=== PATIENT | female | born 1990 | race Caucasian/White ===

== ENCOUNTER 2017-06-01 18:57 | Emergency (ER) | payer MEDICAID, OTHER ==
[2017-06-01 18:57] VITALS: BMI 26.7
[2017-06-01 19:15] VITALS: BP 101/66; PULSE 84; RESP 20; TEMP 98.1; O2SAT 100
[2017-06-01 19:58] LABS: RBC URINE 4 /hpf (0-3); URINE BACTERIA RARE (<OCC); URINE BILIRUBIN NEGATIVE (NEGATIVE); URINE BLOOD NEGATIVE (NEGATIVE); URINE COLOR Yellow (YELLOW); URINE GLUCOSE (UA) NORMAL (Normal); URINE KETONE NEGATIVE (NEGATIVE); URINE LEUKOCYTE ESTERASE 2+ Leu/uL (Negative); URINE PROTEIN NEGATIVE (NEGATIVE); URINE UROBILINOGEN NORMAL mg/dL (0.2-1.0); WBC URINE 2 /hpf (0-5)
--- NOTE | 2017-06-01 20:23 | C.PDOC ---
History Of Present Illness Lisandra Nunez is a 26 y/o female presenting to the ER for evaluation of diffuse upper, middle, and lower back pain, and neck pain, developing since 6AM after sustaining a mechanical fall. Patient reports she slipped and fell on a few steps. She admits she was fine directly following the injury, and pain gradually developed throughout the day. Pain is localized and worsens with movement. Otherwise, patient states she is 6 weeks . LMP was 04/11/17. Denies abdominal pain, vaginal bleeding, or any other symptoms associated with . + care. Last ultrasound was 1 week ago. PMD: None Time Seen by Provider: 06/01/17 19:24 Chief Complaint (Nursing): Back Pain History Per: Patient History/Exam Limitations: no limitations Onset/Duration Of Symptoms: Days (x 1) Current Symptoms Are (Timing): Still Present Exacerbating Factor(s): Movement Past Medical History Reviewed: Historical Data, Nursing Documentation, Vital Signs Vital Signs: Last Vital Signs Temp 98.1 F 06/01/17 19:10 Pulse 84 06/01/17 19:10 Resp 20 06/01/17 19:10 BP 101/66 06/01/17 19:10 Pulse Ox 100 06/01/17 20:37 - Medical History PMH: Kidney Stones (RIGHT AND LEFT), Chronic Kidney Disease Surgical History: Tonsillectomy Other Surgeries: Kidney Stent placement, bunion removal, right breast cyst removal Family History: States: Unknown Family Hx - Social History Hx Tobacco Use: No Hx Alcohol Use: No Hx Substance Use: No - Immunization History Hx Tetanus Toxoid Vaccination: No Hx Influenza Vaccination: No Hx Pneumococcal Vaccination: No Review Of Systems Except As Marked, All Systems Reviewed And Found Negative. Gastrointestinal: Negative for: Abdominal Pain Genitourinary: Negative for: Vaginal Bleeding Musculoskeletal: Positive for: Neck Pain, Back Pain (mid upper and lower) Physical Exam - Physical Exam Appears: Well, Non-toxic, No Acute Distress Skin: Normal Color, Warm, Dry, No Rash, No Ecchymosis Head: Atraumatic, Normacephalic Eye(s): bilateral: PERRL Nose: No Flaring, No Discharge, No Deformity, No Tenderness Oral Mucosa: Moist, No Drooling Tongue: Normal Appearing Lips: Normal Appearing Throat: No Drooling Neck: Trachea Midline, No Midline Cervical Tenderness, Paracervical Tenderness ( Right sided mild tenderness extends down to Right trapezium muscle and upper back with moderate muscle spasm. No ecchymoses.), No Step Off Deformity, Supple Chest: Symmetrical, No Deformity, No Tenderness Cardiovascular: Rhythm Regular Respiratory: No Decreased Breath Sounds, No Accessory Muscle Use, No Stridor, No Wheezing Gastrointestinal/Abdominal: Soft, No Tenderness, No Distention, No Guarding Back: No Vertebral Tenderness, No Paraspinal Tenderness, Other (diffuse B/L periscapular mild tenderness, no ecchymoses, no palpable edfomrity.) Extremity: Normal ROM, No Deformity, No Swelling Neurological/Psych: Oriented x3, Normal Speech, Normal Motor, Normal Sensation, Normal Reflexes ED Course And Treatment - Laboratory Results Urine POC: Positive O2 Sat by Pulse Oximetry: 100 Pulse Ox Interpretation: Normal - Other Rad C-spine X-Ray: Interpreted by Me, Viewed By Me Interpretation: (-) acute fx or sublux Progress Note: On re-evaluation, pt is afebrile, hemodynamicaly stable, not in any apparent distress. Ambulatory in ED with stable gait, tolerate PO well in ED. Head: AT/NC. neck: SUpple, (-) midline tenderness. Lungs: CTA B/L, BS equal B/L. Abd: benign. Extr: FAROM, no deformity, no neurovascular deficits. C-Spine xray review and appears normal. case dsicussed with ED attending . SInce pt have no complaints relaited to , denies abdominal apin, vaginal bleeding, no work up and US recommend at this time, early . Pt advised, precautions given. Pt advised to F/U with OB in 1 -2 days for re-evaluation. Pt has clinical findings c/w cervical and upper back contusion, muscle spasm. Follow up with PMD in 1-2 days for re-eval. Disposition Counseled Patient/Family Regarding: Studies Performed, Diagnosis, Need For Followup, Rx Given - Disposition Referrals: [facility] [Outside] [facility] [Outside] Disposition: HOME/ ROUTINE Disposition Time: 20:01 Condition: STABLE Additional Instructions: TYLENOL NEED FOR PAIN ON YOUR DISCRETION YOU CAN TAKE MUSCLE RELAXANT- ROBAXIN NEED FOR NECK AND LOWER BACK PAIN LIGHT DUTY, AVOID PHYSICAL ACTIVITY FOR 1 WEEK FOLLOW UP WITH OB IN 1-2 DAYS FOR RE-EVALUATION. RETURN TO ED AT ANY TIME IF ABDOMINAL PAIN, VAGINAL BLEEDING OR ANY OTHER NEW CHANGES. 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 - Scribe Statement The provider has reviewed the documentation as recorded by the Scribe (Shaylee Brown) All medical record entries made by the Scribe were at my direction and personally dictated by me. I have reviewed the chart and agree that the record accurately reflects my personal performance of the history, physical exam, medical decision making, and the department course for this patient. I have also personally directed, reviewed, and agree with the discharge instructions and disposition.
--- NOTE | 2017-06-02 10:22 | RAD ---
Cervical spine three views History: Injury. Comparison: None available. Findings: Reversal of the normal cervical lordosis. Cervical spine is visualized from C1 through C7. No significant prevertebral soft tissue swelling. No evidence of acute displaced fracture. Suboptimal view of the dens. Impression: Reversal of the normal cervical lordosis. Negative acute. If pain persists, consider MRI.
== END 2017-06-01 20:42 | disposition home or self-care (01) ==
LOC: C.ER 18:57
DX: O9A.211 Injury, poisoning and certain other consequences of external causes complicating pregnancy, first trimester (principal); S16.1XXA Strain of muscle, fascia and tendon at neck level, initial encounter; S23.3XXA Sprain of ligaments of thoracic spine, initial encounter; S39.012A Strain of muscle, fascia and tendon of lower back, initial encounter; W01.0XXA Fall on same level from slipping, tripping and stumbling without subsequent striking against object, initial encounter; Z3A.01 Less than 8 weeks gestation of pregnancy